=== PATIENT | male | born 1980 | race Caucasian/White ===

== ENCOUNTER 2017-10-04 12:59 | Emergency (ER) | payer OTHER ==
[2017-10-04 13:11] VITALS: BP 113/66; PULSE 89; RESP 18; TEMP 98.9
--- NOTE | 2017-10-04 13:50 | ED ---
General Adult HPI - General Chief complaint: Recheck/Abnormal Lab/Rx Stated complaint: med refill Time Seen by Provider: 10/04/17 13:12 Source: patient Mode of arrival: ambulatory Limitations: no limitations - History of Present Illness Initial comments: This is a 36-year-old male with past medical history of depression and fibromyalgia who presents today for chief complaint of I need a medication refill. Patient states that he was recently released from health resources in [place] after 11 day admission for suicidal ideations. Patient was discharged with a prescription of Lyrica and Neurontin for his fibromyalgia. Patient states that he ran out yesterday and does not have a primary care provider. He is requesting refills this time. He denies any current suicidal or homicidal ideations. Patient was on Lyrica 200 mg 3 times daily and Neurontin 400 mg 3 times daily. Patient denies current symptoms. Patient denies any recent fever, chills, shortness of breath, chest pain, back pain, abdominal pain, nausea or vomiting, numbness or tingling, dysuria or hematuria, constipation or diarrhea, headaches or visual changes, or any other complaints. - Related Data Previous Rx's Medication Instructions Recorded Gabapentin [Neurontin] 400 mg PO TID 7 Days #21 cap 10/04/17 Pregabalin [Lyrica] 200 mg PO TID 7 Days #21 cap 10/04/17 Allergies Allergy/AdvReac Type Severity Reaction Status Date / Time No Known Allergies Allergy Verified 10/04/17 13:11 Review of Systems ROS Statement: Those systems with pertinent positive or pertinent negative responses have been documented in the HPI. ROS Other: All systems not noted in ROS Statement are negative. Constitutional: Denies: fever, chills Eyes: Denies: eye pain ENT: Denies: ear pain Respiratory: Denies: cough, dyspnea Cardiovascular: Denies: chest pain, palpitations Endocrine: Denies: fatigue Gastrointestinal: Denies: abdominal pain, nausea, vomiting, diarrhea, constipation Genitourinary: Denies: urgency, dysuria, frequency, hematuria Musculoskeletal: Denies: back pain, joint swelling, arthralgia Skin: Denies: rash, lesions Neurological: Denies: headache, weakness Past Medical History Past Medical History: Fibromyalgia History of Any Multi-Drug Resistant Organisms: None Reported Additional Past Surgical History / Comment(s): 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 Eye: Pupils are equal, round and reactive to light, extra-ocular movements are intact. No nystagmus. There is normal conjunctiva bilaterally. No signs of icterus. Ears, nose, mouth and throat: There are moist mucous membranes and no oral lesions. Neck: The neck is supple, there is no tenderness or JVD. Cardiovascular: There is a regular rate and rhythm. No murmur, rub or gallop is appreciated. Respiratory: Lungs are clear to auscultation, respirations are non-labored, breath sounds are equal. No wheezes, stridor, rales, or rhonchi. Gastrointestinal: [Soft, non-distended, non-tender abdomen without masses or organomegaly noted. There is no rebound or guarding present. No CVA tenderness. Bowel sounds are unremarkable.] Musculoskeletal: Normal ROM, no tenderness. Strength 5/5. Sensation intact. Pulses equal bilaterally 2+. Neurological: A&O x 3. CN II-XII intact, There are no obvious motor or sensory deficits. Coordination appears grossly intact. Speech is normal. Skin: Skin is warm and dry and no rashes or lesions are noted. Psychiatric: Cooperative, appropriate mood & affect, normal judgment. Limitations: no limitations Course Vital Signs 10/04/17 13:02 Temperature 98.9 F Pulse Rate 89 Respiratory 18 Rate Blood Pressure 113/66 O2 Sat by Pulse 98 Oximetry Medical Decision Making - Medical Decision Making This is a 36-year-old male with past medical history of depression and fibromyalgia who presents today for chief complaint of I need a medication refill. Patient states that he was recently released from health resources in [place] after 11 day admission for suicidal ideations. Patient was discharged with a prescription of Lyrica and Neurontin for his fibromyalgia. Patient states that he ran out yesterday and does not have a primary care provider. He is requesting refills this time. He denies any current suicidal or homicidal ideations. Patient was on Lyrica 200 mg 3 times daily and Neurontin 400 mg 3 times daily. Patient denies current symptoms. I discussed the case with Dr. Vasquez with this time who feels at this time comfortable giving him a one-week prescription for both medications until he is able to find a primary care provider. Patient states that he will find a primary care brought provider within the next week for his next medication refill amd for further continuation of his care. Pt agreed with plan and discharged in stable condition. Patient denies any recent fever, chills, shortness of breath, chest pain, back pain, abdominal pain, nausea or vomiting, numbness or tingling, dysuria or hematuria, constipation or diarrhea, headaches or visual changes, or any other complaints. Disposition Clinical Impression: Medication refill Disposition: HOME SELF-CARE Condition: Good Instructions: Medicine Refill (ED) Additional Instructions: Please use medication as discussed. Please follow-up with family doctor in the next 2 days of symptoms have not improved. Please return to emergency room if the symptoms increase or worsen or for any other concerns. Prescriptions: Gabapentin [Neurontin] 400 mg PO TID 7 Days #21 cap Pregabalin [Lyrica] 200 mg PO TID 7 Days #21 cap Is patient prescribed a controlled substance at d/c from ED?: No Referrals: None,Stated [Primary Care Provider] - 1-2 days Time of Disposition: 13:50
== END 2017-10-04 13:58 | disposition home or self-care (01) ==
LOC: EC 12:59
DX: Z76.0 Encounter for issue of repeat prescription (principal); F17.200 Nicotine dependence, unspecified, uncomplicated
CPT/HCPCS: 99281

== ENCOUNTER 2017-10-16 11:55 | Emergency (ER) | payer OTHER ==
[2017-10-16 12:12] VITALS: BP 115/73; PULSE 96; RESP 16; TEMP 98.8
--- NOTE | 2017-10-16 12:33 | ED ---
General Adult HPI - General Chief complaint: Recheck/Abnormal Lab/Rx Stated complaint: Med Refill Time Seen by Provider: 10/16/17 12:13 Source: patient, RN notes reviewed Mode of arrival: ambulatory Limitations: no limitations - History of Present Illness Initial comments: 36-year-old male presented to the emergency room today with chief complaint medication refill. Patient does admit that he is out of his Lyrica and gabapentin. He states 5 days. Does have symptoms of nausea related. He states he does not want any other testing. She states came to try to get her prescription his family doctor does not want right the prescription for him. He denies any other complaints or symptoms. - Related Data Previous Rx's Medication Instructions Recorded Gabapentin [Neurontin] 400 mg PO TID 7 Days #21 cap 10/04/17 Pregabalin [Lyrica] 200 mg PO TID 7 Days #21 cap 10/04/17 Gabapentin [Neurontin] 400 mg PO TID 5 Days #15 cap 10/16/17 Pregabalin [Lyrica] 200 mg PO TID 5 Days #15 cap 10/16/17 Allergies Allergy/AdvReac Type Severity Reaction Status Date / Time No Known Allergies Allergy Verified 10/16/17 12:11 Review of Systems ROS Statement: Those systems with pertinent positive or pertinent negative responses have been documented in the HPI. ROS Other: All systems not noted in ROS Statement are negative. 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 Eye: Pupils are equal, round and reactive to light, extra-ocular movements are intact. No nystagmus. There is normal conjunctiva bilaterally. No signs of icterus. Ears, nose, mouth and throat: There are moist mucous membranes and no oral lesions. Neck: The neck is supple, there is no tenderness or JVD. Cardiovascular: There is a regular rate and rhythm. No murmur, rub or gallop is appreciated. Respiratory: Lungs are clear to auscultation, respirations are non-labored, breath sounds are equal. No wheezes, stridor, rales, or rhonchi. Musculoskeletal: Normal ROM, no tenderness. Strength 5/5. Sensation intact. Pulses equal bilaterally 2+. Neurological: A&O x 3. CN II-XII intact, There are no obvious motor or sensory deficits. Coordination appears grossly intact. Speech is normal. Skin: Skin is warm and dry and no rashes or lesions are noted. Psychiatric: Cooperative, appropriate mood & affect, normal judgment. Limitations: no limitations Course Vital Signs 10/16/17 12:09 Temperature 98.8 F Pulse Rate 96 Respiratory 16 Rate Blood Pressure 115/73 O2 Sat by Pulse 99 Oximetry Medical Decision Making - Medical Decision Making Patient is a little short prescription for 5 days his medications but needs follow-up family doctor for further prescriptions. Disposition Clinical Impression: Medication refill Disposition: HOME SELF-CARE Condition: Good Instructions: Medicine Refill (ED) Additional Instructions: Please follow-up with family physician for further prescriptions. Prescriptions: Gabapentin [Neurontin] 400 mg PO TID 5 Days #15 cap Pregabalin [Lyrica] 200 mg PO TID 5 Days #15 cap Is patient prescribed a controlled substance at d/c from ED?: No Referrals: Alice Pappas MD [Primary Care Provider] - 1-2 days Time of Disposition: 12:31
== END 2017-10-16 12:55 | disposition home or self-care (01) ==
LOC: EC 11:55
DX: Z76.0 Encounter for issue of repeat prescription (principal); R11.0 Nausea; F17.200 Nicotine dependence, unspecified, uncomplicated
CPT/HCPCS: 99281

== ENCOUNTER 2019-09-28 19:52 | Inpatient (IN) | payer MEDICAID, OTHER ==
--- NOTE | 2019-09-28 20:14 | ED ---
Psych HPI - General Chief Complaint: Psychiatric Symptoms Stated Complaint: Mental health Time Seen by Provider: 09/28/19 19:55 Source: patient, EMS Mode of arrival: EMS - History of Present Illness Initial Comments: 38-year-old male patient presents to the emergency department today for psychiatric evaluation. He is reporting suicidal ideation. Has no specific plan to take his life. Patient states that he uses several substances including cocaine, adderall, klonopin, methadone, and valium. States that he is trying to get into rehab and is waiting for a call back from the access center. Patient states that throughout the day today he has been thinking about suicide. He states that he does not feel safe "outside" and thinks he may do something to himself. He is currently living with his mother. Does not have a job. Denies suicidal or homicidal ideation. Denies previous suicide attempt. Patient denies any recent rash, fever, chills, cough, shortness of breath, chest pain, abdominal pain, nausea, vomiting, diarrhea, constipation, back pain, numbness, tingling, dizziness, weakness, hematuria, dysuria, urinary urgency, urinary frequency, headache, visual changes, or any other complaints. - Related Data Home Medications Medication Instructions Recorded Confirmed Gabapentin 800 mg PO QID 09/28/19 09/28/19 Methadone HCl [Methadone Intensol] 190 mg PO DAILY 09/28/19 09/28/19 Seroquel(Unknown Dose) 1 tab PO HS 09/28/19 09/28/19 buPROPion HCL [Wellbutrin XL] 150 mg PO DAILY 09/28/19 09/28/19 clonazePAM [KlonoPIN] 1 mg PO HS 09/28/19 09/28/19 clonazePAM [KlonoPIN] 2 mg PO QA 09/28/19 09/28/19 Allergies Allergy/AdvReac Type Severity Reaction Status Date / Time benztropine [From Cogentin] AdvReac Hallucinati Verified 09/28/19 21:59 ons Review of Systems ROS Statement: Those systems with pertinent positive or pertinent negative responses have been documented in the HPI. ROS Other: All systems not noted in ROS Statement are negative. 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 Vital signs upon presentation are temperature 98.3F, pulse 72, respirations 18, blood pressure 113/77, pulse ox 98% on room air.) Eye exam: Present: normal appearance, PERRL, EOMI. Absent: scleral icterus, conjunctival injection, periorbital swelling ENT exam: Present: normal exam, normal oropharynx, mucous membranes moist Respiratory exam: Present: normal lung sounds bilaterally. Absent: respiratory distress, wheezes, rales, rhonchi, stridor Cardiovascular Exam: Present: regular rate, normal rhythm, normal heart sounds. Absent: systolic murmur, diastolic murmur, rubs, gallop, clicks GI/Abdominal exam: Present: soft, normal bowel sounds. Absent: distended, tenderness, guarding, rebound, rigid Neurological exam: Present: alert, oriented X3, CN II-XII intact Psychiatric exam: Present: normal affect, normal mood, suicidal ideation. Absent: homicidal ideation Skin exam: Present: warm, dry, intact, normal color. Absent: rash Course Vital Signs 09/28/19 19:56 Temperature 98.3 F Pulse Rate 72 Respiratory 18 Rate Blood Pressure 113/77 O2 Sat by Pulse 98 Oximetry Medical Decision Making - Medical Decision Making 38-year-old male patient presented to the emergency department today for evaluation of suicidal ideation and concern for withdrawal from his medications. Physical examination is unremarkable. He was cleared medically and evaluated by emergency psychiatric services. It is felt he would benefit from mental health admission. He will be transferred to the mental health unit. Disposition Clinical Impression: Suicidal ideation Disposition: ADMITTED IP TO THIS HOSP Condition: Serious Referrals: Alice Pappas MD [Primary Care Provider] - 1-2 days - Out of Hospital Transfer - Req. Specs Out of Hospital Transfer - Requested Specifics: Psychiatric Non-ICU ([facility])
[2019-09-29] MEDS ORDERED: ACETAMINOPHEN TAB 325 MG TAB PO PRN (00:19)
[2019-09-29] MEDS ORDERED: MAG HYDROX/AL HYDROX/SIMETH 30 ML CUP PO PRN (00:19)
[2019-09-29] MEDS ORDERED: MAGNESIUM HYDROXIDE 2,400 MG/10 ML CUP PO PRN (00:19)
[2019-09-29] MEDS ORDERED: LORazepam 2 MG/ML INJ IM PRN (00:20)
[2019-09-29] MEDS ORDERED: ZIPRASIDONE 20 MG VIAL IM PRN (00:30)
[2019-09-29] MEDS: LORazepam 1 MG TAB PO PRN ×3 (00:49→18:28)
[2019-09-29] MEDS: QUEtiapine 200 MG TAB PO SCH ×2 (00:50→21:50)
[2019-09-29] MEDS: GABAPENTIN 300 MG CAP PO SCH ×4 (00:57→21:50)
--- NOTE | 2019-09-29 08:46 | P.HP ---
Psychiatric H&P - . H&P Date: 09/29/19 History & Physical: U would not get out of bed or answer questions this morning. I will try to interview him later today. Allergies Allergy/AdvReac Type Severity Reaction Status Date / Time benztropine [From Cogentin] AdvReac Hallucinati Verified 09/28/19 21:59 ons Vital Signs Temp 97.0 F L 09/29/19 00:18 Pulse 71 09/29/19 00:18 Resp 18 09/29/19 00:18 BP 99/66 09/29/19 00:18 Pulse Ox 95 09/29/19 00:18 Intake & Output 09/28/19 09/29/19 09/29/19 18:59 06:59 18:59 Weight 79.379 kg 09/29/19 08:45
[2019-09-29] MEDS ORDERED: GABAPENTIN 300 MG CAP PO SCH (09:00)
[2019-09-29] MEDS ORDERED: buPROPion XL 150 MG TAB.ER.24H PO SCH (09:00)
[2019-09-29] MEDS: NICOTINE 14MG/24HR PATCH TRANSDERM SCH (09:26)
[2019-09-29] MEDS ORDERED: cloNIDine HCL 0.1 MG TAB PO PRN (09:40)
[2019-09-29] MEDS ORDERED: DIPHENOX-ATROP 2.5-0.025 MG 1 EACH TAB PO PRN (09:43)
[2019-09-29] MEDS ORDERED: ONDANSETRON ODT 4 MG TAB PO PRN (09:43)
[2019-09-29] MEDS ORDERED: METHADONE 10 MG TAB PO SCH (09:45)
[2019-09-29] MEDS ORDERED: buPROPion XL 150 MG TAB.ER.24H PO STA ×2 (12:57→14:18)
[2019-09-29] MEDS ORDERED: QUEtiapine 200 MG TAB PO SCH (21:00)
[2019-09-30] MEDS: GABAPENTIN 300 MG CAP PO SCH (07:43)
[2019-09-30] MEDS: NICOTINE 14MG/24HR PATCH TRANSDERM SCH (07:43)
[2019-09-30 07:58] LABS: Basophils # (A) 0.1 k/uL (0-0.2); Basophils % (A) 1 %; Eosinophils # (A) 0.2 k/uL (0-0.7); Eosinophils % (A) 3 %; HGB 12.8 gm/dL (13.0-17.5); Lymphocytes # (A) 2.3 k/uL (1.0-4.8); Lymphocytes % (A) 40 %; MCH 28.2 pg (25.0-35.0); MCHC 30.4 g/dL (31.0-37.0); MCV 92.9 fL (80.0-100.0); Mean Platelet Volume 7.1; Monocytes # (A) 0.3 k/uL (0-1.0); Monocytes % (A) 6 %; Neutrophils # (A) 2.7 k/uL (1.3-7.7); Neutrophils % (A) 48 %; Platelet Count 290 k/uL (150-450); RBC 4.53 m/uL (4.30-5.90); RDW 12.3 % (11.5-15.5); WBC 5.7 k/uL (3.8-10.6)
[2019-09-30 08:10] LABS: ALT 10 U/L (4-49); AST 23 U/L (17-59); African American GFR (CKD) >90 (>60 ml/min/1.73 sqM); Albumin 3.9 g/dL (3.5-5.0); Alkaline Phosphatase 68 U/L (38-126); Anion Gap 5 mmol/L; Blood Urea Nitrogen 14 mg/dL (9-20); Calcium 9.4 mg/dL (8.4-10.2); Carbon Dioxide 24 mmol/L (22-30); Chloride 111 mmol/L (98-107); Cholesterol 280 mg/dL (<200); Glucose 88 mg/dL (74-99); HDL Cholesterol 35 mg/dL (40-60); LDL Cholesterol,Calculated 214 mg/dL (0-99); Non-African American GFR(CKD) >90 (>60 ml/min/1.73 sqM); Potassium 4.9 mmol/L (3.5-5.1); Sodium 140 mmol/L (137-145); Total Bilirubin 0.4 mg/dL (0.2-1.3); Total Protein 6.5 g/dL (6.3-8.2); Triglycerides 155 mg/dL (<150)
[2019-09-30] MEDS ORDERED: METHADONE 10 MG TAB PO SCH (09:00)
[2019-09-30] MEDS ORDERED: buPROPion XL 300 MG TAB.ER.24H PO SCH (09:00)
--- NOTE | 2019-09-30 13:53 | P.DS ---
Providers Date of admission: 09/28/19 23:52 Attending physician: Kanu Kenney MD Consults: 09/29/19 00:19 Consult Physician Routine Consulting Provider: Jacqueline Physician Consult Reason/Comments: H&P and medical Do you want consulting provider notified?: Yes Primary care physician: Elyse Salcedobal - Discharge Diagnosis(es) (1) Opioid withdrawal Current Visit: Yes Status: Resolved Priority: Medium (2) Benzodiazepine withdrawal Current Visit: Yes Status: Resolved Priority: Medium (3) Opioid use disorder, severe, in early remission, on maintenance therapy Current Visit: Yes Status: Chronic Priority: High (4) Severe benzodiazepine use disorder Current Visit: Yes Status: Chronic Priority: High (5) Stimulant use disorder Current Visit: Yes Status: Chronic Priority: Medium Hospital Course: ADMISSION HISTORY: He is 2-year-old male admitted to psychiatric unit with complaints opiate withdrawal and suicidal ideation. He resented to the ED with complaint "severe depression and anxiety". He complained that he is "out of his meds." He went camping of the weekend and either lost his medications or thought they may have been stolen. The bag containing this medication including methadone, Klonopin and gabapentin. He still had prescriptions for Seroquel and Wellbutrin. He has a history of an opiate use disorder and is currently prescribed methadone 190 mg daily through a methadone program called [facility]. He last dosed on Saturday prior to his admission. His primary complaint is not having access to Klonopin and complaining of "Klonopin withdrawal". He was irritable and minimally cooperative. He is preoccupied with obtaining methadone and Klonopin. I explained that we are not a methadone treatment program and ability only able to provide him with a detox. I also told him that I reviewed his MAPS which showed that he is obtaining multiple prescriptions of Klonopin from multiple providers. I would not be prescribing him scheduled dosing of Klonopin. He provided little information other than complaining of withdrawal. He denied having suicidal thoughts or wishes. HOSPITAL COURSE: We admitted him to the psychiatric unit under care of this sign writer hand. Provided a copy is a biopsychosocial assessment. The regional engagement consultant death claim examiner completed initial physical exam and medical history. workers compensation analyst completed initial psychosocial assessment coordinate discharge and aftercare services. He was drug focused throughout the hospitalization. We treated opiate withdrawal symptoms with tapering dose of methadone beginning at 30 mg per day and prescribe Ativan 1 mg 3 times a day for benzodiazepine withdrawal symptoms. He attempted to get higher doses of both methadone and and benzodiazepines. We continued his psychotropic medications including Seroquel etc. milligrams at bedtime and Wellbutrin X are 300 mg daily. We continued gabapentin 300 mg 3 times a day (but not his outpatient dose of 800 mg 4 times a day). Nursing staff found him snorting his dose of Wellbutrin. Apparently he had cheeked and snorted the tablet. MENTAL STATUS AT DISCHARGE: At time of discharge she presented as a thin casually groomed 38-year-old male who looked older than stated age. He made eye contact and appeared to attend to interview. He had a distressed facial expression. He was alert and oriented to person, place and time. He showed no abnormality of psychomotor activity. His speech was spontaneous with normal rate, rhythm and volume. His affect was anxious but stable and appropriate. He denied suicidal ideation and wishes. She denied homicidal ideation. He denied feeling hopeless, helpless or worthless. He ruminated about his substance use needs including a higher dose of methadone and a prescription for clonazepam. He did not express ideas reference, paranoid ideation or delusions. His thinking was concrete and associations were coherent, logical and goal directed. He alleged she was "hearing voices" but did not appear to be responding to internal stimuli. AFTERCARE: He is discharged to his former address and recommended to follow-up with dosing to his methadone clinic, [facility]. I did not recommend that he continue with his precise both dose of Klonopin and gabapentin. We did not provide him with per prescriptions for his psychotropic medications because his history of substance abuse. He has an appointment with [facility] and treatment on 10/15/2019 in [facility] for medication review with his outpatient psychiatrist. Patient Condition at Discharge: Serious Plan - Discharge Summary Discharge Rx Participant: No New Discharge Prescriptions: New Nicotine 14Mg/24Hr Patch [Habitrol] 1 patch TRANSDERM DAILY patch Continue Methadone HCl [Methadone Intensol] 190 mg PO DAILY Gabapentin 800 mg PO QID QUEtiapine FUMARATE [SEROquel] 600 mg PO HS buPROPion XL [Wellbutrin XL] 300 mg PO DAILY Discontinued clonazePAM [KlonoPIN] 2 mg PO QAM clonazePAM [KlonoPIN] 1 mg PO HS Discharge Medication List Gabapentin 800 mg PO QID 09/28/19 [History] Methadone HCl [Methadone Intensol] 190 mg PO DAILY 09/28/19 [History] QUEtiapine FUMARATE [SEROquel] 600 mg PO HS 09/29/19 [History] buPROPion XL [Wellbutrin XL] 300 mg PO DAILY 09/29/19 [History] Nicotine 14Mg/24Hr Patch [Habitrol] 1 patch TRANSDERM DAILY patch 09/30/19 [Rx] Follow up Appointment(s)/Referral(s): intake,intake [Other] - 1 Week ([facility] Med review 10/15/[address] Arellano ) Alice Pappas MD [Primary Care Provider] - 1-2 days Patient Instructions/Handouts: Help Prevent Suicide (DC) Activity/Diet/Wound Care/Special Instructions: Activity and diet as tolerated. Avoid the use of street drugs and alcohol. Take all medications as prescribed. When you are in need of refills on your medications please contact your medical provider and/or outpatient psychiatrist to have this done. Please go to scheduled outpatient appointment for aftercare. If symptoms return or become worse call the crisis line at and/or go to the nearest emergency room for an evaluation. Discharge Disposition: HOME SELF-CARE
[2019-09-30 14:04] LABS: Hemoglobin A1C 5.4 % (4.0-6.0)
[2019-10-02 08:21] VITALS: BP 98/62; PULSE 114; RESP 20; TEMP 97.4
== END 2019-09-30 11:28 | disposition home or self-care (01) | DRG 881 ==
LOC: EC 19:52 → 3MHU 23:52
PROVIDERS: ADMIT Psychiatry & Neurology Psychiatry; ATTEND Psychiatry & Neurology Psychiatry
DX: F32.9 Major depressive disorder, single episode, unspecified (principal); R45.851 Suicidal ideations; F11.23 Opioid dependence with withdrawal; F13.239 Sedative, hypnotic or anxiolytic dependence with withdrawal, unspecified; F41.9 Anxiety disorder, unspecified; F15.10 Other stimulant abuse, uncomplicated; F17.210 Nicotine dependence, cigarettes, uncomplicated; M79.7 Fibromyalgia; Z79.899 Other long term (current) drug therapy
CPT/HCPCS: 80053; 80061; 82075; 83036; 84443; 85025; 99285